=== PATIENT | male | born 1965 | race Caucasian/White ===

== ENCOUNTER 2021-03-25 15:14 | Inpatient (IN) | payer OTHER ==
[~2021-03-25] VITALS: Ht 170.2 cm; Wt 96.2 kg
[2021-04-01] MEDS ORDERED: ULTRAM50 MG PO (10:59)
== END 2021-04-01 12:11 | disposition home or self-care (01) | DRG 330 ==
LOC: O/R 03-29 07:35 → SURH 03-29 10:45
PROVIDERS: ADMIT Surgery; ATTEND Surgery
PROC: 0DBP4ZZ Excision of Rectum, Percutaneous Endoscopic Approach (ICD-10-PCS; 2021-03-29)
PROC: 0DBM4ZZ Excision of Descending Colon, Percutaneous Endoscopic Approach (ICD-10-PCS; 2021-03-29)
PROC: 5A09357 Assistance with Respiratory Ventilation, Less than 24 Consecutive Hours, Continuous Positive Airway Pressure (ICD-10-PCS; 2021-03-29)
PROC: 0DTN4ZZ Resection of Sigmoid Colon, Percutaneous Endoscopic Approach (ICD-10-PCS; principal; 2021-03-29 10:45)
PROC: B24BYZZ Ultrasonography of Heart with Aorta using Other Contrast (ICD-10-PCS; 2021-03-30)
PROC: 3E0F7SF Introduction of Other Gas into Respiratory Tract, Via Natural or Artificial Opening (ICD-10-PCS; 2021-03-30)
DX: K57.32 Diverticulitis of large intestine without perforation or abscess without bleeding (principal); J81.1 Chronic pulmonary edema; K59.09 Other constipation; G47.33 Obstructive sleep apnea (adult) (pediatric); E66.9 Obesity, unspecified; Z68.34 Body mass index [BMI] 34.0-34.9, adult